=== PATIENT | female | born 1940 | race Caucasian/White ===

== ENCOUNTER 2017-05-05 10:32 | Inpatient (IN) | payer MEDICARE, BC ==
[~2017-05-05] VITALS: Ht 149.9 cm; Wt 63.5 kg
[2017-05-05] MEDS ORDERED: QUET150T PEG (11:27)
[2017-05-05] MEDS ORDERED: GLYC1TAB PEG (11:27)
[2017-05-05] MEDS ORDERED: TOPI50TA38 PEG (11:27)
[2017-05-05] MEDS ORDERED: ATOR10TA60 PEG (11:27)
[2017-05-05] MEDS ORDERED: HYDR12.58 PEG (11:27)
[2017-05-05] MEDS ORDERED: LEVO75TA5 PEG (11:27)
[2017-05-05] MEDS ORDERED: VENL75TA PEG (11:27)
[2017-05-05] MEDS ORDERED: HYDR473S51 PO (20:18)
[2017-05-05] MEDS ORDERED: MAGNESIUM HYDROXIDE 2,400 MG/30 ML ORAL.SUSP. PO PRN (23:00)
[2017-05-05] MEDS ORDERED: MAG HYDROX/AL HYDROX/SIMETH 30 ML ORAL.SUSP PO PRN (23:00)
[2017-05-05] MEDS ORDERED: METHYL SALICYLATE/MENTHOL TOPICAL OINTMENT 29GM TUBE. TP PRN (23:00)
[2017-05-05] MEDS ORDERED: GLYCOPYRROLATE 1 MG TABLET PEG PRN (23:15)
[2017-05-05] MEDS ORDERED: POLY255P PO (23:27)
[2017-05-05] MEDS ORDERED: VENLAFAXINE 75 MG TABLET. PEG SCH (23:30)
[2017-05-05] MEDS ORDERED: HYDROcodon/APAP 7.5/325MG ORAL 15 ML SOLUTION PO PRN (23:30)
[2017-05-05] MEDS: QUEtiapine 50 MG TABLET. PEG SCH (23:30)
[2017-05-06 00:29] VITALS: BP 115/77
[2017-05-06] MEDS ORDERED: POLYETHYLENE GLYCOL 3350 17 GM PACKET. PO PRN (06:00)
[2017-05-06] MEDS ORDERED: LEVOTHYROXINE 75 MCG TABLET PEG SCH (07:30)
[2017-05-06] MEDS ORDERED: VENLAFAXINE 75 MG TABLET. PEG SCH (08:00)
[2017-05-06 08:30] LABS: BASO # 0.1 x10^3/uL (0.0-0.2); BASO % 1 % (0-3); EOS # 0.3 x10^3/uL (0.0-0.7); EOS % 5 % (0-3); HEMATOCRIT 39.5 % (36.0-47.0); HEMOGLOBIN 13.3 g/dL (12.0-15.5); LYMPH # 1.4 x10^3/uL (1.0-4.8); LYMPH % 22 % (24-48); MEAN CORPUSCULAR HEMOGLOBIN 29 pg (25-35); MEAN CORPUSCULAR HGB CONC 34 g/dL (31-37); MEAN CORPUSCULAR VOLUME 85 fL (79-100); MONO # 0.6 x10^3/uL (0.0-1.1); MONO % 10 % (0-9); NEUT # 3.8 x10^3uL (1.8-7.7); NEUT % 62 % (31-73); PLATELET COUNT 230 x10^3/uL (140-400); RED BLOOD COUNT 4.62 x10^6/uL (3.50-5.40); RED CELL DISTRIBUTION WIDTH 14.1 % (11.5-14.5); WHITE BLOOD COUNT 6.2 x10^3/uL (4.0-11.0)
[2017-05-06 08:36] LABS: ALBUMIN 3.5 g/dL (3.4-5.0); ALBUMIN/GLOBULIN RATIO 0.9 (1.0-1.7); CALCIUM 9.2 mg/dL (8.5-10.1); CREATININE 0.8 mg/dL (0.6-1.0); GFR 70.1; MAGNESIUM 2.1 mg/dL (1.8-2.4); POTASSIUM 3.2 mmol/L (3.5-5.1); TOTAL BILIRUBIN 0.3 mg/dL (0.2-1.0); TOTAL PROTEIN 7.4 g/dL (6.4-8.2)
[2017-05-06] MEDS ORDERED: TOPIRAMATE 25 MG TABLET. PEG SCH (09:00)
[2017-05-06] MEDS ORDERED: hydroCHLOROthiazide 25 MG TABLET PEG SCH (09:00)
--- NOTE | 2017-05-06 12:16 | HP ---
ADMIT DATE: 05/06/2017 BRIEF HISTORY AND PHYSICAL NOTE HISTORY OF PRESENT ILLNESS: This is a 76-year-old female, who was admitted yesterday evening for paranoia and delusion and suicidal ideation. She came via the ER at [facility]. The patient was seen with Dr. Dumont this morning and refuses to stay and will be leaving AMA, full history and physical was not done. KENNY MOREL DO DR: CAMILLE/afbiola JOB#: [id number] / [id number]
[2017-05-06 14:22] LABS: THYROID STIM HORMONE (TSH) 1.468 uIU/mL (0.358-3.740)
--- NOTE | 2017-05-06 18:42 | PDOC ---
Exam Note: Sohail Note: Please also refer to the separate dictated note~for this date of service dictated separately.~Patient seen individually. Discussed the patient with Nursing staff reviewed the chart.~Reviewed interim history and current functioning. Reviewed vital signs,~Labs/ Radiology~and current medications noted below. Continue current treatment with the changes noted in the dictated addendum note Assessment: Vital Signs: Vital Signs Date Time Temp Pulse Resp B/P (MAP) Pulse Ox O2 Delivery O2 Flow Rate FiO2 05/06/17 00:29 97.7 70 20 115/77 (90) 97.0 I&O Intake and Output 05/06/17 07:00 Intake Total 0 ml Balance 0 ml Intake Oral 0 ml Labs: Laboratory Tests Test 05/06/17 08:05 White Blood Count 6.2 x10^3/uL (4.0-11.0) Red Blood Count 4.62 x10^6/uL (3.50-5.40) Hemoglobin 13.3 g/dL (12.0-15.5) Hematocrit 39.5 % (36.0-47.0) Mean Corpuscular Volume 85 fL (79-100) Mean Corpuscular Hemoglobin 29 pg (25-35) Mean Corpuscular Hemoglobin Concent 34 g/dL (31-37) Red Cell Distribution Width 14.1 % (11.5-14.5) Platelet Count 230 x10^3/uL (140-400) Neutrophils (%) (Auto) 62 % (31-73) Lymphocytes (%) (Auto) 22 % (24-48) L Monocytes (%) (Auto) 10 % (0-9) H Eosinophils (%) (Auto) 5 % (0-3) H Basophils (%) (Auto) 1 % (0-3) Neutrophils # (Auto) 3.8 x10^3uL (1.8-7.7) Lymphocytes # (Auto) 1.4 x10^3/uL (1.0-4.8) Monocytes # (Auto) 0.6 x10^3/uL (0.0-1.1) Eosinophils # (Auto) 0.3 x10^3/uL (0.0-0.7) Basophils # (Auto) 0.1 x10^3/uL (0.0-0.2) Sodium Level 143 mmol/L (136-145) Potassium Level 3.2 mmol/L (3.5-5.1) L Chloride Level 106 mmol/L (98-107) Carbon Dioxide Level 29 mmol/L (21-32) Anion Gap 8 (6-14) Blood Urea Nitrogen 23 mg/dL (7-20) H Creatinine 0.8 mg/dL (0.6-1.0) Estimated GFR (Cockcroft-Gault) 70.1 BUN/Creatinine Ratio 29 (6-20) H Glucose Level 97 mg/dL (70-99) Calcium Level 9.2 mg/dL (8.5-10.1) Magnesium Level 2.1 mg/dL (1.8-2.4) Iron Level 56 ug/dL (50-170) Total Iron Binding Capacity 356 ug/dL (250-450) Iron Saturation 16 % (15-34) Total Bilirubin 0.3 mg/dL (0.2-1.0) Aspartate Amino Transferase (AST) 22 U/L (15-37) Alanine Aminotransferase (ALT) 33 U/L (14-59) Alkaline Phosphatase 100 U/L (46-116) Total Protein 7.4 g/dL (6.4-8.2) Albumin 3.5 g/dL (3.4-5.0) Albumin/Globulin Ratio 0.9 (1.0-1.7) L Triglycerides Level 93 mg/dL (0-150) Cholesterol Level 163 mg/dL (0-200) LDL Cholesterol, Calculated 73 mg/dL (0-100) VLDL Cholesterol, Calculated 18 mg/dL (0-40) Non-HDL Cholesterol Calculated 91 mg/dL (0-129) HDL Cholesterol 72 mg/dL (40-60) H Cholesterol/HDL Ratio 2.0 Vitamin B12 Level 1011 pg/mL (247-911) H 25-Hydroxy Vitamin D Total 33.6 ng/mL (30-100) Thyroid Stimulating Hormone (TSH) 1.468 uIU/mL (0.358-3.740) Current Medications: Meds: Current Medications Venlafaxine HCl (Effexor) 75 mg BID PEG ; Start 05/05/17 at 23:30; Stop at 23:31; Status DC Quetiapine Fumarate (SEROquel) 150 mg HS PEG ; Start 05/05/17 at 23:30; Stop 05/06/17 at 15:20; Status DC Multi-Ingredient Ointment (Analgesic Arena) 1 gabbie PRN QID PRN TP MUSCLE PAIN; Start 05/05/17 at 23:00; Stop 05/06/17 at 15:20; Status DC Al Hydroxide/Mg Hydroxide (Mylanta Plus Xs) 15 ml PRN AFTMEALHC PRN PO DYSPEPSIA; Start 05/05/17 at 23:00; Stop 05/06/17 at 15:20; Status DC Magnesium Hydroxide (Milk Of Magnesia) 2,400 mg PRN QHS PRN PO CONSTIPATION; Start 05/05/17 at 23:00; Stop 05/06/17 at 15:20; Status DC Glycopyrrolate (Robinul) 1 mg PRN TID PRN PEG SECRETIONS; Start 05/05/17 at 23 :15; Stop 05/06/17 at 15:20; Status DC Acetaminophen/ Hydrocodone Bitart (Lortab 7.5-325/ 15ml Oral Solution) 15 ml PRN Q4HRS PRN PO PAIN; Start 05/05/17 at 23:30; Stop 05/06/17 at 15:20; Status DC Venlafaxine HCl (Effexor) 75 mg BIDWMEALS PEG ; Start 05/06/17 at 08:00; Stop 05/06/17 at 15:20; Status DC Atorvastatin Calcium (Lipitor) 10 mg HS PEG ; Start 05/06/17 at 21:00; Stop at 21:00; Status DC Levothyroxine Sodium (Synthroid) 75 mcg DAILYAC PEG ; Start 05/06/17 at 07:30; Stop 05/06/17 at 15:20; Status DC Polyethylene Glycol (miraLAX) 17 gm PRN DAILY PRN PO CONSTIPATION; Start 05/06 at 06:00; Stop 05/06/17 at 15:20; Status DC Hydrochlorothiazide (Hydrodiuril) 25 mg DAILY PEG ; Start 05/06/17 at 09:00; Stop 05/06/17 at 15:20; Status DC Topiramate (Topamax) 50 mg BID94 PEG ; Start 05/06/17 at 09:00; Stop 05/06/17 at 15:20; Status DC Active Scripts Active Reported Polyethylene Glycol 3350 255 Gm Powder 17 Gm PO DAILY PRN Hycet 7.5 Mg-325 Mg/15 Ml Soln (Hydrocodone Bit/Acetaminophen) 473 Ml Solution 15 Ml PO PRN Q4-6HRS PRN Seroquel Xr (Quetiapine Fumarate) 150 Mg Tab.er.24h 150 Mg PEG QHS Topamax (Topiramate) 50 Mg Tablet 50 Mg PEG BID AT 0900, 1700 Venlafaxine Hcl 75 Mg Tablet 75 Mg PEG BID AT 0900, 1700 Robinul (Glycopyrrolate) 1 Mg Tablet 1 Mg PEG PRN PRN Hydrochlorothiazide Tablet (Hydrochlorothiazide) 12.5 Mg Tablet 25 Mg PEG DAILY Levothyroxine Sodium 75 Mcg Tablet 75 Mcg PEG DAILYAC Atorvastatin Calcium 10 Mg Tablet 10 Mg PEG DAILY I have reviewed the current psychotropics carefully including drug interactions. Risk benefit ratio favors no change other than as noted in my dictated progress note. Diagnosis: Problems: (1) Bipolar affective disorder, mixed (2) Anxiety disorder JACQUELINE AGUILLON MD May 06, 2017 18:42
[2017-05-06 20:14] LABS: T3 TOTAL 77 ng/dL (71-180); THYROXINE 7.5 ug/dL (4.5-12.0)
[2017-05-06] MEDS ORDERED: ATORVASTATIN CALCIUM 10 MG TABLET. PEG SCH (21:00)
--- NOTE | 2017-05-06 23:18 | DS ---
DATE OF DISCHARGE: 05/06/2017 PSYCHIATRIC ADMISSION HISTORY/ EVALUATION/DISCHARGE SUMMARY This note covers elements not covered in my initial note of 05/06/2017. IDENTIFYING DATA: The patient is a 76-year-old female referred to us via [facility] in [place], [place] by Dr. Janett Elaine on account of increasing paranoia and delusions. Vague suicidal ideation within the context of depression, bipolar disorder, increased aggression towards her . Reportedly, she was yelling, throwing things. Has an expressive aphasia. Symptoms have been worse for the past 2 weeks. She has failed outpatient psychiatric interventions with Dr. Wang and referred for inpatient psychiatric stabilization. CHIEF COMPLAINT: "I want to leave. No, I am not suicidal." The patient wrote this on her writing pad as I met with her the morning of 05/06/2017 after she told the nursing staff and social service staff that she was insistent on being discharged. When I specifically questioned her further on this suicidal ideation that she had expressed in the past, she stated those were "pseudo" and she says she has never attempted to hurt herself. SIGNIFICANT FINDINGS AND CLINICAL COURSE: Following admission, the patient spent just one night on our unit and then she was insistent on the discharge. She admits to being depressed, minimizes her symptoms of bipolar disorder, and again as noted above denies active suicidal or homicidal ideation. She does have a history of mood swings according to the history and paranoia as noted. MEDICAL HISTORY: Positive for asthma, cataracts, expressive aphasia, impaired vision, primary lateral sclerosis. CODE STATUS: Full code. ALLERGIES: PENICILLIN, PHENAZOPYRIDINE. AMBULATES: Independently. CURRENT PSYCHOTROPICS: Effexor 75 mg b.i.d., Seroquel XR 150 mg p.o. at bedtime. FAMILY HISTORY: Unavailable at this time. SOCIAL HISTORY: The patient lives at home with her who reportedly has moved out recently. No alcohol or drug abuse history. MENTAL STATUS EXAM: The patient was seen individually morning of 05/06/2017. She communicates by writing on her writing bad. She is reasonably oriented thoroughly, denies any active suicidal ideation and I met with her for part of the visit with JARRED Jaeger present as well. Insight somewhat limited. Judgment intact to standard questioning, but somewhat questionable since she is wanting to be discharged against medical advice shortly after her recent admission from last night, but does agree to outpatient followup back in [place]. FINAL DIAGNOSES: Bipolar 1 disorder, mixed probable with psychotic features; history of major depressive disorder. Rest diagnoses as noted above. PLAN: I have discussed with Arleth, social service staff, nursing staff, Heidi RN nurse manager media relations. Staff have assessed the patient. She denies active suicidal ideation and she denied that with me as well. Her intention is to withdraw some money from the bank, take a taxi back to [place], and she agrees to return to follow up with her outpatient psychiatrist and [facility]. The discharge will be against medical advice. No changes were made in her psychotropics during her very brief hospitalization. Time for discharge management greater than 30 minutes. JACQUELINE AGUILLON MD DR: MARBIN/fabiola JOB#: [id number] / [id number]
[2017-05-07 01:07] LABS: HEMOGLOBIN A1C 5.4 % (4.8-5.6)
== END 2017-05-06 14:50 | disposition left against medical advice (07) | DRG 885 ==
LOC: GEROPSY 20:45
PROVIDERS: ADMIT Psychiatry & Neurology Psychiatry; ATTEND Psychiatry & Neurology Psychiatry
DX: F31.64 Bipolar disorder, current episode mixed, severe, with psychotic features (principal); G12.23 Primary lateral sclerosis; R45.851 Suicidal ideations; R47.01 Aphasia; F41.9 Anxiety disorder, unspecified; H54.7 Unspecified visual loss; J45.909 Unspecified asthma, uncomplicated; H26.9 Unspecified cataract; Z53.21 Procedure and treatment not carried out due to patient leaving prior to being seen by health care provider; Z88.0 Allergy status to penicillin; Z88.8 Allergy status to other drugs, medicaments and biological substances
CPT/HCPCS: 36415; 80053; 80061; 82306; 82607; 83036; 83540; 83550; 83735; 84436; 84443; 84480; 85025; 86593